=== PATIENT | female | born 1995 | race African-American/Black ===

== ENCOUNTER 2024-09-29 19:23 | Emergency (ER) | payer SELFPAY ==
[~2024-09-29] VITALS: Ht 160 cm; Wt 49.0 kg
[2024-09-29] MEDS: KETOROLAC TROMETHAMINE 15 MG/ML VIAL IM ONE (20:32)
[2024-09-29] MEDS: ACETAMINOPHEN ES 500 MG TABLET PO ONE (20:34)
[2024-09-29] MEDS ORDERED: ACETAMINOPHEN ES 500 MG TABLET ONE (20:34)
[2024-09-29 21:27] VITALS: BP 110/66; TEMP 98.6; O2SAT 98
[2024-09-29 21:40] LABS: APPEARANCE,URINE SLIGHTLY CLOUDY (CLEAR); BLOOD, URINE NEGATIVE Ery/uL (NEGATIVE); LEUKOCYTE ESTERASE ,URINE 2+ (NEGATIVE); NITRITE, URINE NEGATIVE (NEGATIVE); UGLUCOSE NEGATIVE (NEGATIVE)
[2024-09-29 21:43] LABS: ADD URINE CULTURE YES
== END 2024-09-29 21:30 | disposition home or self-care (01) ==
LOC: ER 19:29
DX: M54.2 Cervicalgia (principal); R51.9 Headache, unspecified; M54.6 Pain in thoracic spine; M79.642 Pain in left hand; R11.0 Nausea; R53.1 Weakness; V43.52XA Car driver injured in collision with other type car in traffic accident, initial encounter; Y93.89 Activity, other specified; Y92.488 Other paved roadways as the place of occurrence of the external cause; Y99.8 Other external cause status
CPT/HCPCS: 72050-TC; 72074-TC; 73130-TC; 81001; 87086-TC

== ENCOUNTER 2024-11-27 11:31 | Emergency (ER) | payer MEDICAID ==
[~2024-11-27] VITALS: Ht 152.4 cm; Wt 49.9 kg
[2024-11-27 11:31] VITALS: BP 106/89; TEMP 98.3
[2024-11-27] MEDS ORDERED: IBUP-1955 PO (13:36)
[2024-11-27 13:43] VITALS: O2SAT 98
== END 2024-11-27 13:44 | disposition home or self-care (01) ==
LOC: ER 11:34
DX: M79.622 Pain in left upper arm (principal); Z04.89 Encounter for examination and observation for other specified reasons; Y04.0XXA Assault by unarmed brawl or fight, initial encounter; Y93.89 Activity, other specified; Y92.89 Other specified places as the place of occurrence of the external cause; Y99.0 Civilian activity done for income or pay
CPT/HCPCS: 73030-TC

== ENCOUNTER 2025-02-17 10:54 | Emergency (ER) | payer SELFPAY ==
[~2025-02-17] VITALS: Ht 154.9 cm; Wt 54.4 kg
[~2025-02-17 10:54] MED LIST: IBUP-1955 PO
[2025-02-17 11:03] VITALS: TEMP 98.2
[2025-02-17] MEDS ORDERED: ONDANSETRON HCL/PF 4 MG/2 ML VIAL ONE (11:19)
[2025-02-17] MEDS: IV NS 0.9% 1,000 ML BAG IV ONE ×2 (11:45→14:15)
[2025-02-17 11:59] LABS: APPEARANCE,URINE CLEAR (CLEAR); BLOOD, URINE NEGATIVE Ery/uL (NEGATIVE); LEUKOCYTE ESTERASE ,URINE NEGATIVE (NEGATIVE); NITRITE, URINE NEGATIVE (NEGATIVE); UGLUCOSE NEGATIVE (NEGATIVE)
[2025-02-17] MEDS ORDERED: IOHEXOL-300 100 ML VIAL IV ONE (12:10)
[2025-02-17] MEDS ORDERED: IV NS 0.9% 250 ML IV ONE (12:10)
[2025-02-17] MEDS: ONDANSETRON HCL/PF 4 MG/2 ML VIAL IVP ONE (12:14)
[2025-02-17 12:25] LABS: ASPARTATE AMINOTRANSFERASE 11.0 U/L (15-37); CALCIUM, SERUM 8.7 mg/dL (8.5-10.1); CREATININE 0.8 mg/dL (0.6-1.3); SODIUM SERUM 144.0 mmol/L (136-145); TOTAL PROTEIN, SERUM 7.5 g/dL (6.4-8.2); UREA NITROGEN, BLOOD 10.0 mg/dL (7-18)
[2025-02-17 12:26] LABS: PLATELET COUNT (AUTO) 208 K/uL (150-450); RED BLOOD CELL COUNT(AUTO) 4.15 MIL/uL (4.0-5.2); RED CELL DISTRIBUTION WIDTH 13.3 % (11.5-15.0); WHITE BLOOD COUNT (AUTO) 8.2 K/uL (4.3-11.0)
[2025-02-17] MEDS ORDERED: KETOROLAC TROMETHAMINE 15 MG/ML VIAL ONE (13:03)
[2025-02-17] MEDS: KETOROLAC TROMETHAMINE 15 MG/ML VIAL IV ONE (13:08)
[2025-02-17] MEDS ORDERED: DOXYCYCLINE 100 MG in IV D5W 250 ML IV ONE (14:00)
[2025-02-17] MEDS ORDERED: CEFTRIAXONE 1GM BAG (ER ONLY) 50 ML IV ONE (14:11)
[2025-02-17] MEDS ORDERED: METRONIDAZOLE 500MG/ NS 100ML 100 ML IV ONE (14:11)
[2025-02-17] MEDS: CEFTRIAXONE 1 G in IV D5W 50 ML IV ONE (14:15)
[2025-02-17] MEDS ORDERED: METR500T PO (14:39)
[2025-02-17] MEDS ORDERED: DOXY100C2 PO (14:39)
[2025-02-17] MEDS: METRONIDAZOLE 500MG/ NS 100ML 100 ML IV ONE (14:45)
[2025-02-17] MEDS: DOXYCYCLINE 100 MG in IV D5W 100 ML IV ONE (15:46)
[2025-02-17 17:24] VITALS: BP 118/74; O2SAT 96
== END 2025-02-17 17:17 | disposition home or self-care (01) ==
LOC: ER 10:58
DX: N70.11 Chronic salpingitis (principal); N92.0 Excessive and frequent menstruation with regular cycle; R11.0 Nausea
CPT/HCPCS: 99285; 74177; 96365; 96367; 76856; 96375; 96361; 85025; 80048; 87040 ×2; 83605; 83690; 80076; 81003; 36415; 84702; J1885; J3490; J0696 ×2; J2405; J7060 ×2; J7030 ×2; J7050 ×2; J7040; Q9967; A4223; 87086-TC